=== PATIENT | male | born 1950 | race Hispanic/Latino ===

== ENCOUNTER → 2019-08-15 | Day surgery (SDC) | payer MEDICARE, OTHER ==
[2019-08-12 09:43] LABS: BASOPHILS % 0.7 % (0.0-1.0); EOSINOPHILS # (AUTO) 0.1 (0.0-0.4); EOSINOPHILS % 2.1 % (0.0-6.0); HEMATOCRIT 42.2 % (38.2-49.6); LYMPHOCYTES # (AUTO) 1.5 (1.0-3.2); LYMPHOCYTES % 34.7 % (18.0-39.1); MEAN CORPUSCULAR HEMOGLOBIN 27.5 pg (28-32); MEAN CORPUSCULAR HGB CONC 33.2 g/dL (31-35); MEAN CORPUSCULAR VOLUME 82.7 fL (81-99); MONOCYTES # (AUTO) 0.5 (0.2-0.8); MONOCYTES % 10.7 % (4.4-11.3); NEUTROPHILS # (AUTO) 2.2 (2.1-6.9); NEUTROPHILS % 51.3 % (38.7-80.0); PLATELET COUNT 274 x10e3/uL (140-360); RED CELL DISTRIBUTION WIDTH 13.8 % (11.7-14.4)
[~2019-08-15] MED LIST: ASPIR 8181 MG PO; FENTANYL CITRATE/PF 100MCG/2 ML INJ ONE; FLOMAX0.4 MG PO; LOSARTAN POTAS100 MG PO; METFORMIN HCL500 MG PO; MIDAZOLAM HCL 2 MG/2 ML VIAL ONE; OMEPRAZOLE40 MG PO; PROPOFOL IV EMULSION 10 MG/ML 20 ML VIAL ONE
[2019-08-15 09:45] VITALS: BP 139/82
--- OUTSIDE RECORDS SUMMARY | 2019-08-15 10:35 | XMS REPORT | Continuity of Care Document ---
Author Author Lior Cocodot, MADONNA Quinones [employer] Address Unknown Phone Unavailable Care Team Providers Care Director Of Investigations Name Role Phone [employer] [facility] [employer] Unavailable Un available Problems Problem Status Onset Date Classification Date Reported Comments Source Essential (primary) hypertension 02/23/2018 09/09/2018 [facility] [place] I10 - ESSENTIAL (PRIMARY) HYPERTENSI Active 02/19/2018 [facility] [place] Medications Medication Details Route Status Patient Instructions Ordering Provider Order Date Source clarithromycin 500 mg oral tablet 500 mg = 1 tab, PO, Q12H, 0 Refill(s) Active 06/24/2019 [facility] lansoprazole 30 mg oral tablet, disintegrating 30 mg = 1 tab, PO, Daily, 0 Refill(s) Active 06/24/2019 [facility] Amoxicillin 0 Refill(s) Active 06/24/2019 [facility] Allergies, Adverse Reactions, Alerts Substance Category Reaction Severity Reaction type Status Date Reported Comments Source clindamycin Assertion Itching, rash Drug allergy Active [facility] Immunizations No Data Provided for This Section Results Order Name Results Value Reference Range Date Interpretation Comments Source URINE AND STOOL POC UA Color Yellow *NA* (06/24/19 1:51 PM) Yellow 06/24/2019 [facility] URINE AND STOOL POC UA Turbidity Clear *NA* (06/24/19 1:51 PM) Clear 06/24/2019 [facility] URINE AND STOOL POC UA SG >=1.030 *ABN* (06/24/19 1:51 PM) <=1.030 06/24/2019 [facility] URINE AND STOOL POC UA pH 5.5 5.0 - 8.0 06/24/2019 [facility] URINE AND STOOL POC UA Prot Negative mg/dL Negative mg/dL 06/24/2019 [facility] URINE AND STOOL POC UA Glu 100 mg/dL Negative mg/dL 06/24/2019 [facility] URINE AND STOOL POC UA Ket Negative mg/dL Negative mg/dL 06/24/2019 [facility] URINE AND STOOL POC UA Bili Negative *NA* (06/24/19 1:51 PM) Negative 06/24/[facility] URINE AND STOOL POC UA Bld Negative *NA* (06/24/19 1:51 PM) Negative 06/24/2019 [facility] URINE AND STOOL POC UA Uro 0.2 0.1 - 1.0 06/24/2019 [facility] URINE AND STOOL POC UA Nit Negative *NA* (06/24/19 1:51 PM) Negative 06/24/2019 [facility] URINE AND STOOL POC UA LeukEst Negative *NA* (06/24/19 1:51 PM) Negative 06/24/2019 [facility] Pathology Reports No Data Provided for This Section Diagnostic Reports Report Value Date Source Abdomen complete US STUDY: Abd omen complete US HISTORY: - R10.11 Right upper quadrant pain COMPARISON: None FINDINGS: Ultrasound imaging of the abdomen was performed. Liver: Normal in size. Normal in echogenicity. 2 simple cysts are seen measuring up to 2.2 cm. Main portal venous flow is in the hepatopedal direction. Biliary tract: No intrahepatic biliary tract dilatation is seen. Common bile duct measures 5.0 mm. Gallbladder: Normal. No gallstones. No gallbladder wall thickening. No pericholecystic fluid collection. The sonographic Quach's sign is reported to be negative. Pancreas: Visualized pancreas is normal. Aorta: Visualized aorta is normal in caliber. IVC: Patent. Right kidney: Normal in echogenicity. Measures 11.0 cm in length. Cortical thickness of 1.5 cm. No hydronephrosis. No echogenic shadowing renal stones. Left kidney: Normal in echogenicity. Measures 10.9 cm in length. Cortical thickness of 2.0 cm. No hydronephrosis. No echogenic shadowing renal stones. Spleen: Normal in size measuring 11.0 cm in length. IMPRESSION: Simple liver cysts. Otherwise unremarkable abdominal ultrasound. 03/05/2019 HARSH[facility] Santos Chest 2 views DX Exam: Two-vie w chest x-ray Reason for Exam: - R07.9 Chest pain, unspecified Comparison Exam: X-ray 02/19/2018 Discussion: Cardiomediastinal silhouette is within normal limits. Both hemidiaphragms well visualized. No pulmonary edema or pleural effusions. No focal lung consolidations. Trachea is midline. Stable subcentimeter nodule seen overlying the left hemithorax, most compatible with granuloma. No acute bony abnormalities. Impression: 1. No acute cardiopulmonary abnormaliti es. 03/05/2019 [facility] [place] Chest 2 views DX Exam: Two-vie w chest x-ray Reason for Exam: - I10 Essential (primary) hypertension Comparison Exam: None Discussion: Cardiomediastinal silhouette is within normal limits. Both hemidiaphragms well visualized. No pulmonary edema or pleural effusions. No focal lung consolidations. Trachea is midline. No acute bony abnormalities. Mild multilevel degenerative disc disease seen within the thoracic spine. Impression: 1. No acute cardiopulmonary abnormaliti es. 02/19/2018 [facility] [place] Consultation Notes No Data Provided for This Section Discharge Summaries No Data Provided for This Section History and Physicals No Data Provided for This Section Vital Signs No Data Provided for This Section Encounters Location Location Details Encounter Type Encounter Number Reason For Visit Attending Provider ADM Date DC Date Status Source [facility] [place] [facility] [id number] Jef Suarez 02/19/2018 02/20/2018 [facility] [place] [facility] [place] [facility] [id number] Jef Suarez 03/05/2019 03/06/2019 [facility] [place] [facility] Outpatient [id number] David Lucero 06/24/2019 06/25/2019 [facility] Outpatient [id number] Tigre Mcgovern 07/09/2019 Active [facility] Outpatient [id number] Tigre Mcgovern 07/09/2019 [facility] Ambulatory Pre-Reg [id number] Tigre Mcgovern 07/09/2019 07/09/2019 [facility] Procedures No Data Provided for This Section Assessment and Plan No Data Provided for This Section Plan of Care No Data Provided for This Section Social History Social History Date Source Social History TypeResponse Smoking Status Unknown if ever smoked; Previous treatment: None; Exposure to Tobacco Smoke None; Cigarette Smoking Last 365 Days No; Reg Smoking Cessation Counseling No entered on: 07/05/19 07/05/2019 [facility] No data available for this section 03/06/2019 [facility] [place] Family History No Data Provided for This Section Advance Directives No Data Provided for This Section Functional Status No Data Provided for This Section
--- OUTSIDE RECORDS SUMMARY | 2019-08-15 10:35 | XMS REPORT | Clinical Summary ---
Author Author [facility] Organization [facility] Address Unknown Phone Unavailable Care Team Providers Care Apartment House Manager Name Role Phone Konrad Youngblood MD PCP Pcp, No PCP Unavailable Allergies Comments Active Allergy Reactions Severity Noted Date Clindamycin Itching Medium 09/22/2010 Medications End Date Status Medication Sig Dispensed Refills Start Date Active ASPIRIN EC 81 mg delayed Take 1 tablet 90 tablet 3 release by mouth 5 tabletIndications: daily. Hyperlipidemia Active INSULIN SYRINGE 0.5mL Use to inject 1 Box 11 30GX5/16" (ULTRA COMFORT) medication 5 syringe-needleIndications Use as : Type 2 diabetes directed. Use mellitus with diabetic a new syringe retinopathy, macular each time. edema presence unspecified, with unspecified retinopathy severity Active blood glucose 1 Device by 1 Kit 0 meterIndications: Type 2 MISCELLANEOUS 5 diabetes mellitus with route 2 times hyperglycemia daily Use as directed.. Active nystatin (MYCOSTATIN) Apply to 60 g 2 01/26 topical creamIndications: affected area 5 Tinea 2 times daily. Active flavoxATE (URISPAS) 100 Take 1 tablet 30 tablet 3 mg tabletIndications: by mouth 3 6 Dysuria times daily as needed for Pain Active silver sulfADIAZINE Apply to 50 g 1 (SILVADENE) 1 % topical affected area 6 creamIndications: Burn 2 times daily Kenyan label. Active NON-FORMULARY MEDICATION Take by mouth 0 REQUESTIndications: once. Patient takes a prostate supplement 2 pills daily Active blood glucose test 1 Each 2 100 Each 1 01 stripsIndications: Type 2 times daily. 7 diabetes mellitus not at goal Active gabapentin (NEURONTIN) Take 1 90 capsule 3 08/ 08/201 300 mg capsule by 7 capsuleIndications: mouth at Uncontrolled type 2 bedtime diabetes mellitus with nightly. complication, with long-term current use of insulin, Neuropathic pain Active blood glucose test Use as 100 Each 5 01 stripsIndications: directed to 7 Insulin-requiring or check sugars dependent type II BID.. diabetes mellitus, Type 2 diabetes mellitus not at goal Active lancets 28 2 times daily 100 Each 5 gaugeIndications: Use as 7 Insulin-requiring or Directed. dependent type II diabetes mellitus, Type 2 diabetes mellitus not at goal Active linagliptin (TRADJENTA) 5 Take 1 tablet 90 tablet 3 mg tabletIndications: by mouth 8 Insulin-requiring or daily dependent type II *belarusian diabetes mellitus label*. Active Union-3 Acid Ethyl Esters Take 1 90 capsule 5 1 gram capsule by 8 capsuleIndications: mouth daily. Medicine refill Active rosuvastatin (CRESTOR) 20 Take 1 tablet 90 tablet 3 mg tabletIndications: by mouth 8 Mixed hyperlipidemia, daily. Medicine refill Active tamsulosin (FLOMAX) 0.4 Take 1 90 capsule 3 mg extended release capsule by 8 capsuleIndications: Lower mouth daily. urinary tract symptoms (LUTS), Medicine refill Active finasteride (PROSCAR) 5 Take 1 tablet 90 tablet 3 mg tabletIndications: by mouth 8 Lower urinary tract daily. symptoms (LUTS), Medicine refill Active oxybutynin (DITROPAN XL) Take 1 tablet 30 tablet 6 5 mg extended release by mouth 8 tabletIndications: daily Urgency of micturition, Counseled pt Dysuria, Post-void on possible dribbling side effects of urinary retention,dry mouth and constipation with use of oxybutynin.. Active INSULIN SYRINGE 1mL Use to inject 100 Each 09/24 30GX5/16" medication 8 syringe-needleIndications Use as : Type 2 diabetes directed to mellitus not at goal inject insulin BID. Use a new syringe each time. Active metFORMIN (GLUCOPHAGE-XR) Take 2 360 tablet 3 500 mg ER extended tablets by 8 release mouth 2 times tabletIndications: daily (with Uncontrolled type 2 meals). diabetes mellitus with complication, with long-term current use of insulin Active losartan (COZAAR) 25 mg Take 1 tablet 90 tablet 3 tabletIndications: HTN, by mouth 8 goal below 140/90, daily. Medicine refill Active ketoconazole (NIZORAL) 2 Apply to 60 g 0 0 % topical affected area 8 creamIndications: Nail 2 times discoloration daily. Active insulin detemir U-100 Inject 100 mL 0 (LEVEMIR) 100 unit/mL subcutaneousl 8 injectionIndications: y: 90 units Insulin-requiring or QAM / 16 dependent type II units QPM. 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) 10/29/2013 Hepatic steatosis (per 12/2012 abdominal ultrasound) 01/23/2013 BPH (benign prostatic hypertrophy) 12/21/2012 Hyperlipidemia, 10 yr ASCVD risk 28.3% on 04/2014 Diabetes mellitus 09/15/2010 Immunizations Name Administration Dates Next Due Ceftriazone 250mg 04/01/2014 Injection Herpes Zoster Vaccine In 11/19/2014 Clinic Influenza Vaccine 02/03/2016, 12/25/2013, 04/2012, 12/27/2011 Influenza Vaccine, 02/20/2017 Seasonal, Injectable Influenza, 02/08/2018, 01/25/2018 (Def erred: Other - patient Vaccine<FLUCELVAX>(Multi- left with out influenza va ccine.) Dose) PPV 23 Pneumococcal 06/20/2016, 02/01/2012 Polysaccaride Pneumococcal 13-valent 12/08/2014 conj 0.5 mL injection Tdap Tetanus, diphtheria, 07/23/2012 acellular pertussis Vaccine Family History Medical History Relation Name Comments Diabetes Father Stroke Sister Relation Name Status Comments Brother Alive 4 Father Maternal Grandfather Maternal Grandmother Mother Alive Paternal Grandfather Paternal Grandmother Sister Alive 4 Sister Social History Date Tobacco Use Types Packs/Day Years Used Never Smoker Smokeless Tobacco: Never Used Tobacco Cessation: Counseling Given: No Drinks/Week oz/Week Comments Alcohol Use No Food Insecurity Answer Date Recorded Within the past 12 months, you worried that your Never zev e 09/14/2017 food would run out before you got money to buy more. Within the past 12 months, the food you bought Never true 09/14/2017 just didn't last and you didn't have mo zoë to get more. Sex Assigned at Date Recorded Not on file Industry Job Start Date Occupation Not on file Not on file Not on file Travel End Travel History Travel Start No recent travel history available. Last Filed Vital Signs Not on file Plan of Treatment Health Maintenance Due Date Last Done Comments DM Foot Exam (Yearly) 09/21/2018 09/21/2017, 08/26, 06/20/2016, Additional history exists DM Retinal Exam (Yearly) 09/21/2018 09/21/2017, 0 09/05/2016, 06/20/2016, Additional history exists Colorectal Cancer Scrn 09/22/2018 09/22/2017, (Previously Annual (FIT/FOBT) Age 50 completed - External), , to 75 Additional history exists DM HGBA1C (Yearly) 02/08/2019 02/08/2018, 018, 07/25/2017, Additional history exists IMM Pneumococcal Age 65 Completed 06/20/2016 (Pr eviously completed - and Up External) Goals Goal Patient Associated Recent Progress Patient-Stat Aut hor Goal Type Problems ed? Eat Healthy Lifestyle Not on track No Paulino, (09/14/2017 8:40 AM Faraz CDT) GALE Taylor LOWER BLOOD GLUCOSE Lifestyle Not on track No Kavita olson, (09/14/2017 8:40 AM Sana Bryant LVN CDT) Results Not on fileafter 08/14/2018 Insurance Type Payer Benefit Subscriber ID Effective Phone Address Plan / Dates Group [facility] xxxxxxxxx 2017-P [phone] [address] MEDICARE resent [id number] [place] [address] [place] [id number] xxxxxxxxx 2018- [phone] QUALIFIED Present 2004 MEDICARE [place], [place] BENEFICIAR [id number] Y Advance Directives Date Inactivated Comments Code Status Date Activated 09/17/2010 6:53 PM Full Code 09/14/2010 2:32 PM 09/03/2010 10:55 PM Full Code 08/23/2010 8:09 PM
--- OUTSIDE RECORDS SUMMARY | 2019-08-15 10:36 | XMS REPORT | Summary of Care ---
Author Author [facility] Organization [facility] Address Unknown Phone Unavailable Encounter CATHERINE Raman(FIN) [id number] Date(s): 06/24/19 - 06/24/19 [facility] [place] [address] [address] 2 [phone] Discharge Disposition: Home or Self Care Attending Physician: David Barker MD Vital Signs No data available for this section Problem List No data available for this section Allergies, Adverse Reactions, Alerts No data available for this section Medications amoxicillin 0 Refill(s) Start Date: 06/24/19 Status: Ordered clarithromycin 500 mg oral tablet 500 mg = 1 tab, PO, Q12H, 0 Refill(s) Start Date: 06/24/19 Status: Ordered lansoprazole 30 mg oral tablet, disintegrating 30 mg = 1 tab, PO, Daily, 0 Refill(s) Start Date: 06/24/19 Status: Ordered Results Most recent to 1 oldest [Reference Range]: POC UA Bili Negative [Negative] *NA* (06/24/19 1:51 PM) POC UA Bld Negative [Negative] *NA* (06/24/19 1:51 PM) POC UA Color Yellow [Yellow] *NA* (06/24/19 1:51 PM) POC UA Glu [Negative 100 mg/dL mg/dL] *NA* (06/24/19 1:51 PM) POC UA Ket [Negative Negative mg/dL mg/dL] *NA* (06/24/19 1:51 PM) POC UA LeukEst Negative [Negative] *NA* (06/24/19 1:51 PM) POC UA Nit Negative [Negative] *NA* (06/24/19 1:51 PM) POC UA pH [5.0-8.0] 5.5 (06/24/19 1:51 PM) POC UA Prot Negative mg/dL [Negative mg/dL] *NA* (06/24/19 1:51 PM) POC UA SG [<=1.030] >=1.030 *ABN* (06/24/19 1:51 PM) POC UA Turbidity Clear [Clear] *NA* (06/24/19 1:51 PM) POC UA Uro [0.1-1.0 0.2 EU/dL EU/dL] (06/24/19 1:51 PM) Immunizations No data available for this section Procedures No data available for this section Social History No data available for this section Assessment and Plan No data available for this section
--- OUTSIDE RECORDS SUMMARY | 2019-08-15 10:36 | XMS REPORT | Summary of Care ---
Author Author [facility] [place] Organization [facility] Address Unknown Phone Unavailable Encounter HQ Encntr_alias(FIN) [id number] Date(s): 07/09/19 - 07/09/19 [facility] [place] [address] [address]- Attending Physician: Tigre Mcgovern MD Vital Signs No data available for this section Problem List No data available for this section Allergies, Adverse Reactions, Alerts Substance Reaction Severity Status clindamycin Itching, rash Active Medications No data available for this section Results No data available for this section Immunizations No data available for this section Procedures No data available for this section Social History Social History Type Response Smoking Status Unknown if ever smoked; Pre vious treatment: None; Exposure to Tobacco Smoke None; Cigarette Smoking Last 365 Days N o; Reg Smoking Cessation Counseling No entered on: 07/05/19 Assessment and Plan No data available for this section
--- OUTSIDE RECORDS SUMMARY | 2019-08-15 10:36 | XMS REPORT | Summary of Care ---
Author Author [facility] Organization [facility] Address Unknown Phone Unavailable Encounter HQ Encntr_alias(FIN) [id number] Date(s): 03/05/19 - 03/05/19 [facility] Outpatient Imaging - [address] [address] [phone] Discharge Disposition: Home or Self Care Attending Physician: Jef Suarez MD Referring Physician: Jef Suarez MD Vital Signs No data available for this section Problem List No data available for this section Allergies, Adverse Reactions, Alerts No data available for this section Medications No data available for this section Results No data available for this section Immunizations No data available for this section Procedures No data available for this section Social History No data available for this section Assessment and Plan No data available for this section
--- OUTSIDE RECORDS SUMMARY | 2019-08-15 10:36 | XMS REPORT ---
Author Author [facility] t Organization [facility] t Address [address] [place] [address] Phone Unavailable Care Team Providers Care Botanical Technical Officer Name Role Phone Rylie SANTANA, H Kornad PCP Elijah Mcgovern Attphys Clinton Barker Attphys Oh Suarez Attphys Problems Condition Name Condition Details Condition Category Status Onset Date Resolution Date Last Treatment Date Treating Clinician Comments Source I10 - ESSENTIAL (PRIMARY) HYPERTENSI I10 - ESSENTIAL (PRIMARY) HYPERTENSI Active 02/19/2018 [facility] [place] Diagnosis Active 2018-02-19 00:01:00 2018-02-19 13:03:00 M H HARSHAD Dianea Helicobacter pylori antibody positive Helicobacter pylori an tibody positive Disease Active 2017-10-02 00:00:00 [facility] Neuropathic pain Neuropathic pain Disease Active 2016-11-01 00:00:00 [facility] Forgetfulness Forgetfulness Disease Active 2016-07-19 00:00:00 [facility] Chronic neck and back pain Chronic neck and back pain Disease Active 2015-06-11 00:00:00 [facility] Chronic pain of left knee Chronic pain of left knee Disease Ac tive 2015-05-07 00:00:00 [facility] Chronic instability of left knee Chronic instability of left kne e Disease Active 2014-04-16 00:00:00 [facility] [employer] [facility] Financial difficulties Financial difficulties Disease Active 2014-04-08 00:00:00 [facility] Diabetic retinopathy, moderate per and 05/2014 retinal scan, needs 6 mo rescan Diabetic retinopathy, moderate per and 05/2014 retinal scan, needs 6 mo rescan Disease Active 2013-12-30 00:00:00 [facility] Chronic male pelvic pain (possible CPP/prostatitis syn drome) Chronic male pelvic pain (possible CPP/prostatitis syndrome) Disease Active 2013-10-29 00:00: 00 [facility] Hepatic steatosis (per 12/2012 abdominal ultrasound) H epatic steatosis (per 12/2012 abdominal ultrasound) Disease Active 2013-01-23 00:00:00 [facility] BPH (benign prostatic hypertrophy) BPH (benign prostatic hypertr ophy) Disease Active 2012-12-21 00:00:00 [facility] Hyperlipidemia, 10 yr ASCVD risk 28.3% on 04/2014 Hyper lipidemia, 10 yr ASCVD risk 28.3% on 04/2014 Disease Active 2011-11-30 00:00:00 [facility] Diabetes mellitus Diabetes mellitus Disease Active 2010-09-15 00:00:00 [facility] Essential (primary) hypertension Essential (primary) hypertension 02/23/2018 09/09/2018 [facility] [place] Problem 2018-02-23 09:05:11 2018-09-09 11:29:41 2018-09-09 11:29:41 [facility] [place] Allergies, Adverse Reactions, Alerts Allergy Name Allergy Type Status Severity Reaction(s) Onset Date Inacti ve Date Treating Clinician Comments Source Clindamycin Propensity to adverse reactions to drug Active Itching 2010-09-22 00:00:00 [facility] clindamycin clindamycin Active [facility] Family History Family Member Diagnosis Comments Start Date Stop Date Source Natural father Diabetes [facility] Natural sister Stroke [facility] Social [facility] Social Habit Start Date Stop Date Quantity Comments Source Sex Assigned At [facility] Social History 2019-03-06 05:59:00 2019-03-06 05:59:00 [facility] Alcohol intake 2018-08-29 00:00:00 2018-08-29 00:00:00 [facility] SDOH Food Worry 2017-09-14 00:00:00 2017-09-14 00:00:00 1 [facility] Food Scarcity 2017-09-14 00:00:00 2017-09-14 00:00:00 1 [facility] Smoking Status Start Date Stop Date Source Social History [facility] Never smoker [facility] Medications Ordered Medication Name Filled Medication Name Start Date Stop Da te Current Medication? Ordering Clinician Indication Dosage Frequency Signature (SIG) Comments Components Source clarithromycin 500 mg oral tablet 2019-06-24 18:39:00 Yes 500 mg = 1 tab, PO, Q12H, 0 Refill(s) [facility] lansoprazole 30 mg oral tablet, disintegrating 2019-06-24 18:39: 00 Yes 30 mg = 1 tab, PO, Daily, 0 Refill(s) [facility] Amoxicillin 2019-06-24 18:39:00 Yes 0 Refill (s) [facility] NON-FORMULARY MEDICATION REQUEST 2018-01-25 09:28:37 Yes Take by mouth once. [facility] insulin detemir U-100 (LEVEMIR) 100 unit/mL injection 2018-01-25 00:00:00 Yes Insulin-requiring or dependent type II diabetes mellit us Inject subcutaneously: 90 units QAM / 16 units QPM. [facility] metFORMIN (GLUCOPHAGE-XR) 500 mg ER extended release tablet 2017-11-16 00:00:00 Yes Uncontrolled typ e 2 diabetes mellitus with complication, with long-term current use of insulin 1000mg Take 2 tablets by mouth 2 times daily (with meals). [facility] losartan (COZAAR) 25 mg tablet 2017-11-16 00:00:00 Yes Medicine refill 25mg QD Take 1 tablet by mouth daily. [facility] ketoconazole (NIZORAL) 2 % topical cream 2017-11-16 00:00:00 Yes Nail discoloration Q.5D Apply to affected area 2 times daily. [facility] INSULIN SYRINGE 1mL 30GX5/16" syringe-needle 2017-10-12 00:0 0:00 Yes Type 2 diabetes mellitus not at goal Use to i nject medication Use as directed to inject insulin BID. Use a new syringe each time. [facility] oxybutynin (DITROPAN XL) 5 mg extended release tablet 2017-10-10 00:00:00 Yes Post-void dribbling 5mg QD Take 1 t ablet by mouth daily Counseled pt on possible side effects of urinary retention,dry mouth and constipation with use of oxybutynin.. [facility] Harmony-3 Acid Ethyl Esters 1 gram capsule 2017-09-21 00:00:00 Yes Medicine refill 1g QD Take 1 capsule by mouth daily. [facility] rosuvastatin (CRESTOR) 20 mg tablet 2017-09-21 00:00:00 Yes Medicine refill 20mg QD Take 1 tablet by mouth daily. [facility] tamsulosin (FLOMAX) 0.4 mg extended release capsule 09-21 00:00:00 Yes Medicine refill .4mg QD Take 1 capsule by mouth daily. [facility] finasteride (PROSCAR) 5 mg tablet 2017-09-21 00:00:00 Ye s Medicine refill 5mg QD Take 1 tablet by mouth daily. [facility] linagliptin (TRADJENTA) 5 mg tablet 2017-07-12 00:00:00 Yes Insulin- requiring or dependent type II diabetes mellitus 5mg QD Take 1 tablet by mouth daily *greenlandic label*. [facility] blood glucose test strips 2017-02-20 00:00:00 Yes Type 2 diabetes mellitus not at goal Use as directed to check sugars BID.. [facility] lancets 28 gauge 2017-02-20 00:00:00 Yes Type 2 diabetes mellitus not at goal Q.5D 2 times daily Use as Directed. [facility] gabapentin (NEURONTIN) 300 mg capsule 2016-11-01 00:00:00 Yes Neuropathic pain 300mg Take 1 capsule by mouth at bedtime nightly. [facility] blood glucose test strips 2016-10-14 00:00:00 Yes Type 2 diabetes mellitus not at goal 1{each} Q.5D 1 Each 2 times daily. [facility] silver sulfADIAZINE (SILVADENE) 1 % topical cream 2015-12-09 00:00:00 Yes Burn Q.5D Apply to affected area 2 times daily [place] sharron hernandez. [facility] flavoxATE (URISPAS) 100 mg tablet 2015-09-18 00:00:00 Yes Dysuria 100mg Take 1 tablet by mouth 3 times daily as needed for Pain [facility] blood glucose meter 2015-02-16 00:00:00 Yes Type 2 diabetes mellitus with hyperglycemia 1{device} Q.5D 1 Device by MISCELLA NEOUS route 2 times daily Use as directed.. [facility] nystatin (MYCOSTATIN) topical cream 2015-02-16 00:00:00 Yes Tinea Q.5D Apply to affected area 2 times daily. [facility] INSULIN SYRINGE 0.5mL 30GX5/16" (ULTRA COMFORT) syringe-need le 2014-11-19 00:00:00 Yes Type 2 diabetes mellitus with diabetic retinopathy, macular edema presence unspecified, with unspecified retinopathy severity Use to inject medication Use as directed. Use a new syringe each time. [facility] ASPIRIN EC 81 mg delayed release tablet 2014-05-09 00:00:00 Yes Hyperlipidemia 81mg QD Take 1 tablet by mouth daily. [facility] Immunizations Ordered Immunization Name Filled Immunization Name Date Status Comments Source Influenza, Vaccine<FLUCELVAX>(Multi-Dose) 2018-02-08 00:00 :00 Completed [facility] Influenza Vaccine, Seasonal, Injectable 2017-02-20 00:00:0 0 Completed [facility] PPV 23 Pneumococcal Polysaccaride 2016-06-20 00:00:00 Comp leted [facility] Influenza Vaccine 2016-02-03 00:00:00 Completed [facility] Pneumococcal 13-valent conj 0.5 mL injection 2014-12-08 00 :00:00 Completed [facility] Herpes Zoster Vaccine In Clinic 2014-11-19 00:00:00 Comple ced [facility] Ceftriazone 250mg Injection 2014-04-01 00:00:00 Completed [facility] Influenza Vaccine 2013-12-25 00:00:00 Completed [facility] Influenza Vaccine 2012-12-26 00:00:00 Completed [facility] Tdap Tetanus, diphtheria, acellular pertussis Vaccine 2012-07-23 00:00:00 Completed [facility] PPV 23 Pneumococcal Polysaccaride 2012-02-01 00:00:00 Comp leted [facility] Influenza Vaccine 2011-12-27 00:00:00 Completed [facility] Procedures This patient has no known procedures. Plan of Care Planned Activity Planned Date Details Comments Source Future Scheduled Test 2019-02-08 00:00:00 DM HGBA1C (Yearly) [code = DM HGBA1C (Yearly)] [facility] Scheduled Test 2018-09-22 00:00:00 Colorectal Cancer Scrn Annual (FIT/FOBT) Age 50 to 75 [code = Colorectal Cancer Scrn Annual (FIT/FOBT) Age 50 to 75] [facility] Scheduled Test 2018-09-21 00:00:00 DM Foot Exam (Year ly) [code = DM Foot Exam (Yearly)] [facility] Scheduled Test 2018-09-21 00:00:00 DM Retinal Exam (Y early) [code = DM Retinal Exam (Yearly)] [facility] Encounters Start Date/Time End Date/Time Encounter Type Admission Type [facility] Care Department Encounter ID Source 2019-07-09 13:50:00 2019-07-09 13:50:00 Ambulatory Pre-Reg [facility] [id number] [facility] 2019-07-09 10:30:00 2019-07-09 10:30:00 Outpatient MHIE[facility] LT [facility] [id number] [facility] 2019-07-09 08:50:00 2019-07-09 08:50:00 Outpatient [facility] LT [facility] [id number] [facility] 2019-07-09 08:50:00 2019-07-09 08:50:00 Outpatient Tigre Mcgovern [facility] [id number] 2019-06-24 19:00:00 2019-06-25 04:59:59 Outpatient [facility] [id number] [facility] 2019-06-24 14:00:00 2019-06-24 23:59:59 Outpatient David Barker [facility] [id number] 2019-03-05 13:19:00 2019-03-06 05:59:00 Outpt Diag Services [facility] [place] [id number] [facility] [place] 2019-03-05 07:19:00 2019-03-05 23:59:00 Outpatient Jef Suarez [facility] [id number] 2018-03-01 00:00:00 2018-03-01 00:00:00 Outpatient [facility] [id number] [facility] 2018-03-01 00:00:00 2018-03-01 00:00:00 Outpatient [facility] [id number] [facility] 2018-02-27 00:00:00 2018-02-27 00:00:00 Outpatient [facility] [id number] [facility] 2018-02-19 18:52:00 2018-02-20 05:59:00 Outpt Diag Services [facility] [place] [id number] [facility] [place] 2018-02-19 12:52:00 2018-02-19 23:59:00 Outpatient Jef Suarez [facility] [id number] 2018-02-08 08:37:40 2018-02-08 08:37:40 Outpatient [facility] [id number] [facility] 2018-02-08 07:48:36 2018-02-08 07:48:36 Outpatient [facility] [id number] [facility] 2018-01-25 08:47:05 2018-01-25 08:47:05 Outpatient [facility] [id number] [facility] 2018-01-11 00:00:00 2018-01-11 00:00:00 Outpatient [facility] [id number] [facility] 2017-12-07 08:39:06 2017-12-07 08:39:06 Outpatient [facility] [id number] [facility] 2017-11-16 08:03:03 2017-11-16 08:03:03 Outpatient [facility] [id number] [facility] 2017-11-13 07:24:07 2017-11-13 07:24:07 Outpatient [facility] [id number] [facility] 2017-11-09 08:01:45 2017-11-09 08:01:45 Outpatient [facility] [id number] [facility] 2017-10-12 09:31:02 2017-10-12 09:31:02 Outpatient [facility] [id number] [facility] 2017-10-10 09:16:12 2017-10-10 09:16:12 Outpatient [facility] [id number] [facility] Results Test Description Test Time Test Comments Results Result Comments Source URINE AND STOOL 2019-06-24 18:51:00 Yellow *NA*(06/24/19 1: 51 PM) Medical [facility] URINE AND STOOL 2019-06-24 18:51:00 Clear *NA*(06/24/19 1:5 1 PM) [facility] Group URINE AND STOOL 2019-06-24 18:51:00 >=1.030 *ABN*(06/24/19 1:51 PM) [facility] Group URINE AND STOOL 2019-06-24 18:51:00 Test Item POC UA pH (test code = POC UA pH) 5.5 1 5.0-8.0 Medical GroupURINE AND [id number] 18:51:00Negative *NA*(06/24/19 1:51 PM) Medical GroupURINE AND [id number] 18:51:00Negative *NA*(06/24/19 1:51 PM) Medical GroupURINE AND [id number] 18:51:000.2MH Medical GroupURINE AND [id number] 18:51:00Negative *NA*(06/24/19 1:51 PM) Medical GroupURINE AND [id number] 18:51:00Negative *NA*(06/24/19 1:51 PM)[facility]
--- OUTSIDE RECORDS SUMMARY | 2019-08-15 10:36 | XMS REPORT | Summary of Care ---
Author Author [facility] Organization [facility] Address Unknown Phone Unavailable Encounter HQ Encntr_alias(FIN) [id number] Date(s): 02/19/18 - 02/19/18 [facility] Outpatient Imaging - [address] [address] [id number] Encounter Diagnosis Essential (primary) hypertension (Final) - 02/23/18 Discharge Disposition: Home or Self Care Attending [...]
== END | disposition home or self-care (01) ==
LOC: OR 06:52
PROVIDERS: ATTEND Internal Medicine Gastroenterology
DX: Z12.11 Encounter for screening for malignant neoplasm of colon (principal); K29.50 Unspecified chronic gastritis without bleeding; K44.9 Diaphragmatic hernia without obstruction or gangrene; K21.9 Gastro-esophageal reflux disease without esophagitis; K64.8 Other hemorrhoids; Z71.3 Dietary counseling and surveillance; E66.3 Overweight; I10 Essential (primary) hypertension; E11.9 Type 2 diabetes mellitus without complications; N40.0 Benign prostatic hyperplasia without lower urinary tract symptoms; Z88.1 Allergy status to other antibiotic agents; Z01.810 Encounter for preprocedural cardiovascular examination; Z01.812 Encounter for preprocedural laboratory examination; Z11.59 Encounter for screening for other viral diseases; Z68.28 Body mass index [BMI] 28.0-28.9, adult
CPT/HCPCS: 43239; G0121; 36415; 45378; 82948; 85025; 87635; 93005; J2250; J3010

== ENCOUNTER → 2020-12-16 | Outpatient (CLI) | payer MEDICARE ==
[~2020-12-16] MED LIST changes: -FENTANYL CITRATE/PF 100MCG/2 ML INJ ONE; -MIDAZOLAM HCL 2 MG/2 ML VIAL ONE; -PROPOFOL IV EMULSION 10 MG/ML 20 ML VIAL ONE
== END ==
LOC: US 07:54
PROVIDERS: ATTEND Urology
DX: N43.40 Spermatocele of epididymis, unspecified (principal)
CPT/HCPCS: 76870; 93976

== ENCOUNTER → 2021-12-14 | Outpatient (CLI) | payer MEDICARE | LOC: US 09:18 | PROVIDERS: ATTEND Urology | DX: R31.21 Asymptomatic microscopic hematuria (principal); N39.0 Urinary tract infection, site not specified | CPT/HCPCS: 74018; 76770; 76857 ==

== ENCOUNTER → 2022-05-23 | Outpatient (CLI) | payer MEDICARE | LOC: US 10:40 | PROVIDERS: ATTEND Urology | DX: N43.40 Spermatocele of epididymis, unspecified (principal); N40.1 Benign prostatic hyperplasia with lower urinary tract symptoms | CPT/HCPCS: 76870; 93976 ==